=== PATIENT | male | born 1945 | race Caucasian/White ===

== ENCOUNTER 2018-07-17 09:33 | Day surgery (SDC) | payer MEDICARE ==
[2018-07-14 11:06] VITALS: BMI 24.3
[2018-07-17 10:17] VITALS: TEMP 97.9
[2018-07-17] MEDS ORDERED: MIDAZOLAM HCL 2 MG/2 ML SINGLE DOSE VIAL ONE (12:08)
[2018-07-17] MEDS ORDERED: KETOROLAC TROMETHAMINE 30 MG/1 ML VIAL ONE (12:35)
[2018-07-17] MEDS ORDERED: DEXAMETHASONE SOD PHOSPHATE 4 MG/1 ML VIAL ONE (12:35)
--- NOTE | 2018-07-17 12:53 | OP ---
Operative Note - Note: Operative Date: 07/17/18 Pre-Operative Diagnosis: Right renal stone Operation: Right ESWL Findings: 7 mm upeerb pole stone Right kidney Post-Operative Diagnosis: Same as Pre-op Surgeon: 2,[employer] Anesthesia: Fractional Estimated Blood Loss (mls): 0
[2018-07-17 13:13] VITALS: BP 111/61; PULSE 70
--- NOTE | 2018-07-17 21:51 | OP ---
DATE OF OPERATION: 07/17/2018 PREOPERATIVE DIAGNOSIS: Right renal stone. POSTOPERATIVE DIAGNOSIS: Right renal stone. PROCEDURE: Right extracorporeal shock wave lithotripsy. ATTENDING: Conor Stanton MD ANESTHESIA: Fractional. DESCRIPTION OF OPERATION: The patient was brought in the operating room and placed in a supine position on the operating room table. Ultrasonography and fluoroscopy were performed. A 7-mm right upper pole stone was identified. Anesthesia and preoperative antibiotics were then administered. Shock wave lithotripsy was then started; 3000 impulses at 18 joules of power were administered to the stone with excellent fragmentation under real-time ultrasonography and fluoroscopy. No complications were noted. The patient tolerated the procedure very well. CONOR STANTON M.D. [id number]
== END 2018-07-17 14:03 | disposition home or self-care (01) ==
LOC: JASU-SURG 09:33
PROVIDERS: ATTEND Urology
PROC: 0TF3XZZ Fragmentation in Right Kidney Pelvis, External Approach (ICD-10-PCS; principal; 2018-07-17 11:00)
DX: N20.0 Calculus of kidney (principal)

== ENCOUNTER 2019-07-30 06:07 | Day surgery (SDC) | payer OTHER ==
[2019-07-26 17:49] VITALS: BMI 22.1
[2019-07-30] MEDS ORDERED: DEXAMETHASONE SOD PHOSPHATE 4 MG/1 ML VIAL ONE (07:40)
[2019-07-30] MEDS ORDERED: SUCCINYLCHOLINE CHLORIDE 200 MG/10 ML SYRINGE ONE (07:45)
[2019-07-30] MEDS ORDERED: PROPOFOL 20 ML ONE (07:46)
[2019-07-30] MEDS ORDERED: MIDAZOLAM HCL 2 MG/2 ML SINGLE DOSE VIAL ONE (07:47)
[2019-07-30] MEDS ORDERED: METOPROLOL TARTRATE 5 MG/5 ML VIAL ONE (08:18)
[2019-07-30 10:20] VITALS: BP 97/61; PULSE 60; TEMP 97.5
--- NOTE | 2019-07-30 11:59 | OP ---
Operative Note - Note: Operative Date: 07/30/19 Pre-Operative Diagnosis: Right renal stone Operation: Right ESWL Findings: 7 mm upper pole Right renal stone Post-Operative Diagnosis: Same as Pre-op Surgeon: Myron Wyatt Anesthesia: Fractional Estimated Blood Loss (mls): 0 Drains, Volume Out (mls): 0 Operative Report Dictated: Yes
--- NOTE | 2019-07-30 20:39 | OP ---
DATE OF OPERATION: 07/30/2019 PREOPERATIVE DIAGNOSIS: Right renal stone. POSTOPERATIVE DIAGNOSIS: Right renal stone. PROCEDURE: Right extracorporeal shock wave lithotripsy. ATTENDING: Myron Mckenzie MD ANESTHESIA: Fractional. DESCRIPTION OF OPERATION: Patient was brought in the operating room, placed in supine position on the operating room table. Ultrasonography and fluoroscopy were performed. A 7-mm, upper-pole right renal stone was identified. Anesthesia and preoperative antibiotics were then administered. Shock wave lithotripsy was performed; 3000 impulses at 18 joules of power were administered. Excellent fragmentation of the stone was noted under real-time ultrasonography and fluoroscopy. No complications were noted. The patient tolerated the procedure very well. Star [id number]
== END 2019-07-30 10:21 | disposition home or self-care (01) ==
LOC: JASU-SURG 06:07
PROVIDERS: ATTEND Urology
PROC: 0TF3XZZ Fragmentation in Right Kidney Pelvis, External Approach (ICD-10-PCS; principal; 2019-07-30 08:00)
DX: N20.0 Calculus of kidney (principal)

== ENCOUNTER 2022-06-14 03:51 | Day surgery (SDC) | payer OTHER ==
[2022-05-27 11:52] VITALS: BMI 22.0
[2022-06-14 07:49] VITALS: RESP 20
[2022-06-14] MEDS ORDERED: MIDAZOLAM HCL 2 MG/2 ML SINGLE DOSE VIAL ONE (10:34)
[2022-06-14 11:27] VITALS: TEMP 97.6
[2022-06-14 12:10] VITALS: BP 114/73; PULSE 63
== END 2022-06-14 12:12 | disposition home or self-care (01) ==
LOC: JASU-SURG 03:51
PROVIDERS: ATTEND Urology
PROC: 0TF3XZZ Fragmentation in Right Kidney Pelvis, External Approach (ICD-10-PCS; principal; 2022-06-14 10:00)
DX: N20.0 Calculus of kidney (principal)